=== PATIENT | female | born 1955 | race Two or more races ===

== ENCOUNTER 2018-06-15 22:41 | Emergency (ER) | payer OTHER ==
[~2018-06-15] VITALS: Ht 152.4 cm; Wt 59.0 kg
--- NOTE | 2018-06-15 23:16 | PHYS DOC ---
Past Medical History Past Medical History: High Cholesterol Alcohol Use: None Drug Use: None Adult General Chief Complaint Chief Complaint: ALLERGIC REACTION HPI HPI Patient is a 62 year old female who presents with a rash all over her body and feeling like her throat has a foreign body and it. This started approximately 30 minutes prior to arrival. No identifiable trigger. No new foods, medicines, detergents, lotions, skin creams, or other common triggers. Patient has taken no medicines to help with this. Patient reports that is moderate in severity. The rash is itchy. Nothing seems to make the symptoms better or worse.[] Review of Systems Review of Systems Constitutional: Denies fever or chills [] Eyes: Denies change in visual acuity, redness, or eye pain [] HENT: Denies nasal congestion or sore throat [] Respiratory: Denies cough or shortness of breath [] Cardiovascular: No chest pain or palpitations[] GI: Denies abdominal pain, nausea, vomiting, bloody stools or diarrhea [] : Denies dysuria or hematuria [] Musculoskeletal: Denies back pain or joint pain [] Integument: See history of present illness[] Neurologic: Denies headache, focal weakness or sensory changes [] Endocrine: Denies polyuria or polydipsia [] All other systems were reviewed and found to be within normal limits, except as documented in this note. Current Medications Current Medications Current Medications Medications (Trade) Dose Ordered Sig/Kt Start Time Stop Time Status Last Admin Dose Admin Diphenhydramine HCl (Benadryl) 50 mg 1X ONCE 06/15/18 23:15 06/15/18 23:16 DC 06/15/18 23:37 50 MG Famotidine (Pepcid Vial) 20 mg 1X ONCE 06/15/18 23:15 06/15/18 23:16 DC 06/15/18 23:37 20 MG Methylprednisolone Sodium Succinate (SOLU-Medrol 125MG VIAL) 125 mg 1X ONCE 06/15/18 23:15 06/15/18 23:16 DC 06/15/18 23:36 125 MG Sodium Chloride 500 ml @ 500 mls/hr 1X ONCE 06/15/18 23:15 06/16/18 00:14 DC 06/15/18 23:33 500 MLS/HR Allergies Allergies Allergies Coded Allergies Type Severity Reaction Last Updated Verified aspirin Allergy Severe THROAT SWELLING, REDNESS, RASH 06/15/18 Yes Physical Exam Physical Exam Constitutional: Well developed, well nourished, no acute distress, non-toxic appearance. [] HENT: Normocephalic, atraumatic, bilateral external ears normal, oropharynx moist, no oral exudates, nose normal. [] Eyes: PERRLA, EOMI, conjunctiva normal, no discharge. [] Neck: Normal range of motion, no tenderness, supple, no stridor. [] Cardiovascular:Heart rate regular rhythm, no murmur [] Lungs & Thorax: Bilateral breath sounds clear to auscultation [] Abdomen: Bowel sounds normal, soft, no tenderness, no masses, no pulsatile masses. [] Skin: Warm, dry, erythematous rash across her chest abdomen back and extremities. No palm or sole involvement. No petechiae. No skin sloughing. [] Back: No tenderness, no CVA tenderness. [] Extremities: No tenderness, no cyanosis, no clubbing, ROM intact, no edema. [] Neurologic: Alert and oriented X 3, normal motor function, normal sensory function, no focal deficits noted. [] Psychologic: Affect normal, judgement normal, mood normal. [] Current Patient Data Vital Signs Vital Signs Date Time Temp Pulse Resp B/P (MAP) Pulse Ox O2 Delivery O2 Flow Rate FiO2 06/15/18 22:45 97.6 81 18 184/85 (118) 99 Room Air 97.6 EKG EKG [] Radiology/Procedures Radiology/Procedures [] Course & Med Decision Making Course & Med Decision Making Pertinent Labs and Imaging studies reviewed. (See chart for details) ED course: Patient arrived, was placed in bed, tolerated exam well. Patient had IV access established was given antihistamines as well as steroids which improved her symptoms. Patient was discharged in improved condition. Medical decision making: No evidence of anaphylaxis. No evidence of staph scalded skin syndrome, no Tovar-Ozzie syndrome, no petechiae[] Dragon Disclaimer Dragon Disclaimer This electronic medical record was generated, in whole or in part, using a voice recognition dictation system. Departure Departure Impression: Primary Impression: Allergic reaction Disposition: 01 HOME, SELF-CARE Condition: IMPROVED Patient Instructions: Rash Additional Instructions: Follow-up with your regular doctor in 2 days. If you do not have a regular doctor of list of local clinics will be provided for you. Return to the ER if worsening rash, difficulty breathing, or any other concerns. Scripts Famotidine (PEPCID) 20 Mg Tablet 20 MG PO BID, #14 TAB Prov: FERNIE LOBATO DO 06/16/18 Prednisone (PREDNISONE) 50 Mg Tablet 50 MG PO DAILY for 7 Days, #7 TAB Prov: FERNIE LOBATO DO 06/16/18 Hydroxyzine Hcl (HYDROXYZINE HCL) 25 Mg Tablet 25 MG PO QID, #30 TAB Prov: FERNIE LOBATO DO 06/16/18 Problem Qualifiers Primary Impression: Allergic reaction Encounter type: initial encounter Qualified Codes: T78.40XA - Allergy, unspecified, initial encounter FERNIE LOBATO DO Jun 15, 2018 23:16
[2018-06-15] MEDS: IV NORMAL SALINE 500ML BAG 500 ML IV ONE (23:33)
[2018-06-15] MEDS: methylPREDNISolone SOD SUCC PF 125 MG/2 ML VIAL. IV ONE (23:36)
[2018-06-15] MEDS: diphenhydrAMINE 50 MG/ML VIAL IVP ONE (23:37)
[2018-06-15] MEDS: FAMOTIDINE 20 MG/2 ML VIAL IVP ONE (23:37)
[2018-06-16] MEDS ORDERED: FAMO-63 PO (00:25)
[2018-06-16] MEDS ORDERED: HYDR25TA PO (00:25)
[2018-06-16] MEDS ORDERED: PRED50TA PO (00:25)
[2018-06-16 00:30] VITALS: BP 140/75
== END 2018-06-16 00:45 | disposition home or self-care (01) ==
LOC: ER 22:41
DX: T78.40XA Allergy, unspecified, initial encounter (principal); E78.00 Pure hypercholesterolemia, unspecified; Z88.6 Allergy status to analgesic agent
CPT/HCPCS: 96374; 96375; 99283; J1200; J2930; J3490; J7040